=== PATIENT | female | born 1975 | race Caucasian/White ===

== ENCOUNTER 2023-12-20 14:44 | Emergency (ER) | payer MEDICAID ==
[~2023-12-20] VITALS: Ht 154.9 cm; Wt 70.3 kg
[2023-12-20 14:58] VITALS: BP 130/86; PULSE 74; RESP 18; TEMP 98; O2SAT 100
[2023-12-20] MEDS: ONDANSETRON 4 MG ODT PO ONE (15:55)
[2023-12-20] MEDS: LORazepam 1 MG TAB PO ONE (15:55)
[2023-12-20 16:11] LABS: BASOPHILS % (AUTO) 0.4 % (0.0-2.0); EOSINOPHILS # (AUTO) 0.2 K/uL (0-0.4); EOSINOPHILS % (AUTO) 1.6 % (0.0-4.0); HEMATOCRIT 43.7 % (36-48); HEMOGLOBIN 14.8 g/dL (12.0-16.0); LYMPHOCYTES # (AUTO) 2.6 K/uL (2.5-16.5); LYMPHOCYTES % (AUTO) 25.8 % (20.5-51.1); MEAN CORPUSCULAR HEMOGLOBIN 32 pg (27-31); MEAN CORPUSCULAR HGB CONC 34 g/dL (33-37); MEAN CORPUSCULAR VOLUME 93.9 fL (80-94); MONOCYTES # (AUTO) 0.7 K/uL (0.8-1.0); NEUTROPHILS # (AUTO) 6.6 K/uL (1.8-7.7); NEUTROPHILS % (AUTO) 65.2 % (42.2-75.2); PLATELET COUNT (AUTO) 399 K/uL (140-450); RED BLOOD CELL COUNT(AUTO) 4.65 MIL/uL (4.20-5.40); RED CELL DISTRIBUTION WIDTH 13.2 % (11.6-13.7); WHITE BLOOD COUNT (AUTO) 10.2 K/uL (4.8-10.8)
[2023-12-20 17:00] LABS: ANION GAP 19.6 (8-16); CALCIUM 9.8 mg/dL (8.5-10.1); CARBON DIOXIDE 22.8 mmol/L (21-32); CREATININE 0.7 mg/dL (0.6-1.3); POTASSIUM 3.4 mmol/L (3.5-5.1)
[2023-12-20 17:19] LABS: ALBUMIN 4.4 g/dL (3.4-5.0); BILIRUBIN,DIRECT 0.1 mg/dL (0.0-0.3); TOTAL BILIRUBIN 0.4 mg/dL (0.0-1.0)
[2023-12-20] MEDS ORDERED: IMO2 PO (17:41)
[2023-12-20] MEDS ORDERED: ONDA-188 SL (17:41)
[2023-12-20] MEDS ORDERED: HYDR25CA1 PO (17:41)
[2023-12-20 17:54] VITALS: BP 128/76; PULSE 70; RESP 19; TEMP 98; O2SAT 98
== END 2023-12-20 17:55 | disposition home or self-care (01) ==
LOC: MED 14:44
DX: F10.10 Alcohol abuse, uncomplicated (principal); R11.2 Nausea with vomiting, unspecified; R19.7 Diarrhea, unspecified; Z79.899 Other long term (current) drug therapy; Y90.9 Presence of alcohol in blood, level not specified
CPT/HCPCS: 36415; 80048; 80076; 81025; 83690; 85025; 99283; Q0162